=== PATIENT | female | born 1970 | race Caucasian/White ===

== ENCOUNTER 2017-05-28 14:27 | Emergency (ER) | payer OTHER ==
[~2017-05-28] VITALS: Ht 152.4 cm; Wt 70.2 kg
[~2017-05-28 14:27] MED LIST: ALLEGRA-D 121 TABLET PO; CIPRO500 MG PO; ENDOCET 5-3251 EACH PO; IBUPROFEN800 MG PO; IRON PO; MULTIPLE VITAM1 EACH PO; NORCO 5/3251 TABLET PO; PHENERGAN25 MG PR; TYLENOL EXTRA500 MG PO
[2017-05-28] MEDS ORDERED: MOTRIN800 MG PO (16:23)
[2017-05-28] MEDS ORDERED: FLEXERIL10 MG PO (16:23)
[2017-05-28 16:36] VITALS: BP 123/85
== END 2017-05-28 16:37 | disposition home or self-care (01) ==
LOC: EME 14:27
DX: M25.562 Pain in left knee (principal); M79.605 Pain in left leg; Z87.891 Personal history of nicotine dependence; Z88.1 Allergy status to other antibiotic agents
CPT/HCPCS: 93971